=== PATIENT | female | born 1990 | race Caucasian/White ===

== ENCOUNTER 2016-12-10 11:32 | Emergency (ER) | payer OTHER ==
[~2016-12-10] VITALS: Ht 144.8 cm; Wt 54.1 kg
[~2016-12-10 11:32] MED LIST: CLINDAMYCIN150 MG PO; MOTRIN 800800 MG/TAB PO; NO HOME MEDICATIONS; NORCO 325 MG-51 TAB PO; NORCO 325 MG-7.1 TAB PO; PRENATAL
[2016-12-10 11:37] VITALS: BP 132/69; TEMP 97.8
[2016-12-10] MEDS ORDERED: MOBIC15 MG PO (11:40)
[2016-12-10] MEDS ORDERED: FLEXERIL 1010 MG/TAB PO (11:40)
[2016-12-10 12:20] LABS: PH 5 (5-8); URINE APPEARANCE Hazy; URINE BACTERIA Rare /hpf; URINE BILIRUBIN Negative (NEGATIVE); URINE BLOOD Negative (NEGATIVE); URINE COLOR Yellow; URINE GLUCOSE Negative (NEGATIVE); URINE KETONE Negative (NEGATIVE); URINE UROBILINOGEN Negative (NEGATIVE)
[2016-12-10] MEDS ORDERED: CEFTIN 250250 MG/TAB PO (12:39)
[2016-12-10] MEDS ORDERED: NORCO 325 MG-51 TAB PO (12:39)
[2016-12-10 13:12] VITALS: PULSE 86
== END 2016-12-10 13:08 | disposition home or self-care (01) ==
LOC: COL.ER 11:32
PROVIDERS: Emergency Medicine
DX: M54.5 Low back pain (principal); M54.16 Radiculopathy, lumbar region; N39.0 Urinary tract infection, site not specified